=== PATIENT | female | born 1985 | race American Indian/Alaskan Native ===

== ENCOUNTER 2019-05-28 10:20 | Outpatient (CLI) | payer MEDICAID ==
[2019-05-28 11:57] LABS: Free T4 (Free Thyroxine) 1.22 ng/dL (0.76-1.46)
[2019-05-28 12:09] VITALS: BP 119/71
== END 2019-05-28 12:45 | disposition home or self-care (01) ==
LOC: TRG 10:20
PROVIDERS: ATTEND Obstetrics & Gynecology
DX: O47.03 False labor before 37 completed weeks of gestation, third trimester (principal); Z3A.32 32 weeks gestation of pregnancy
CPT/HCPCS: 36415; 84439; 84443; 84481

== ENCOUNTER 2019-07-12 00:53 | Outpatient (CLI) | payer MEDICAID ==
[2019-07-14 12:20] VITALS: BP 141/65
== END 2019-07-12 03:50 | disposition home or self-care (01) ==
LOC: TRG 00:53 → APU 00:55 → TRG 03:50
PROVIDERS: ATTEND Obstetrics & Gynecology
DX: O47.1 False labor at or after 37 completed weeks of gestation (principal); Z3A.39 39 weeks gestation of pregnancy
CPT/HCPCS: 59025

== ENCOUNTER 2019-07-13 10:51 | Inpatient (IN) | payer MEDICAID ==
[2019-07-13] MEDS ORDERED: LACTATED RINGERS 1,000 ML ONE ×2 (12:25→12:54)
[2019-07-13] MEDS ORDERED: MINERAL OIL 30 ML ORAL LIQD PO PRN (12:52)
[2019-07-13] MEDS ORDERED: NalbUPHINE 10 MG/1 ML INJ IV PRN (12:52)
[2019-07-13] MEDS ORDERED: BUTORPHANOL 2 MG/1 ML INJ IV PRN ×2 (12:52)
[2019-07-13] MEDS ORDERED: ONDANSETRON 4 MG/2 ML INJ IV PRN (12:52)
[2019-07-13] MEDS ORDERED: NALOXONE 0.4 MG/1 ML INJ IV PRN (12:52)
[2019-07-13] MEDS ORDERED: TERBUTALINE 1 MG/1 ML INJ SUB-Q PRN (12:52)
[2019-07-13] MEDS ORDERED: TERBUTALINE 1 MG/1 ML INJ IVP PRN (12:52)
[2019-07-13] MEDS ORDERED: PROMETHAZINE 25 MG TAB PO PRN (12:52)
[2019-07-13] MEDS ORDERED: ePHEDrine SULFATE 50 MG/1 ML INJ IV PRN ×2 (12:52→17:13)
[2019-07-13] MEDS ORDERED: fentaNYL 100 MCG/2 ML INJ IV PRN (12:52)
[2019-07-13] MEDS ORDERED: LIDOCAINE (2%) 20 MG/1 ML VIAL 20 ML MDV INFILTRATI ONE (12:52)
--- NOTE | 2019-07-13 12:52 | History and Physical Report ---
History of Present Illness Date of examination: 07/13/19 Date of admission: 07/13/19 Chief complaint: labor History of present illness: This is a 34 yo at 39+3 weeks here for labor at 6cm Past History - Obstetrical History : 1 Medications and Allergies Allergies Allergy/AdvReac Type Severity Reaction Status Date / Time No Known Allergies Allergy Verified 03/11/15 18:08 Home Medications Medication Instructions Recorded Confirmed Last Taken Type methIMAzole [Tapazole] 5 mg PO Q8H #90 tab 09/10/15 Unknown Rx propranoloL [Inderal] 20 mg PO BID #60 tablet 09/10/15 Unknown Rx Diphenhydramine HCl [Benadryl 25 mg PO TID PRN #20 tablet 09/24/15 Unknown Rx Allergy TAB] predniSONE [Deltasone] 20 mg PO BID #10 tab 09/24/15 Unknown Rx - Vital Signs Vital signs: Vital Signs Pulse BP 68 149/84 07/13/19 12:31 07/13/19 12:31 Temp Pulse Resp BP Pulse Ox 98.2 F 68 16 149/84 07/13/19 12:33 07/13/19 12:33 07/13/19 12:33 07/13/19 12:33 Results All other labs normal. Assessment and Plan A/P IUP 39+3 weeks active labor offer epidural augment with pitocin wxpect vaginal delivery
[2019-07-13] MEDS ORDERED: AMPICILLIN/NS 2 GM/100 ML 2 GM/100 ML BAG IV ONE ×2 (12:54→13:00)
[2019-07-13] MEDS ORDERED: OXYTOCIN DRIP 30 UNITS/500 ML BAG IV SCH ×2 (13:00)
[2019-07-13] MEDS: LACTATED RINGERS 1,000 ML IV SCH ×3 (13:00→16:55)
[2019-07-13 13:03] LABS: Hematocrit 36.9 % (30.3-42.9); Hemoglobin 12.1 gm/dl (10.1-14.3); Mean Corpuscular HGB Conc 33 % (30-34); Mean Corpuscular Volume 81 fl (79-97); Platelet Count 281 K/mm3 (140-440); Red Blood Count 4.53 M/mm3 (3.65-5.03); Red Cell Distribution Width 16.1 % (13.2-15.2)
[2019-07-13] MEDS ORDERED: DEXMEDETOMIDINE 200 MCG/2 ML VIAL IV ONE (16:30)
[2019-07-13] MEDS: AMPICILLIN/NS 1 GM/50 ML 1 GM/50 ML BAG IV SCH ×2 (16:55→20:53)
[2019-07-13] MEDS ORDERED: NALOXONE 2 MG/2 ML INJ IV PRN (17:13)
--- NOTE | 2019-07-13 17:16 | Anesthesia Consultation ---
Anesthesia Consult and Med Hx Date of service: 07/13/19 - Airway Anesthetic Teeth Evaluation: Good ROM Head & Neck: Adequate Mental/Hyoid Distance: Adequate Mallampati Class: Class II Intubation Access Assessment: Good - Pulmonary Exam CTA: Yes - Cardiac Exam Cardiac Exam: RRR - Pre-Operative Health Status ASA Pre-Surgery Classification: ASA2, Emergency Proposed Anesthetic Plan: Epidural, Spinal - Pulmonary Hx Asthma: No COPD: No Hx Pneumonia: No - Cardiovascular System Hx Hypertension: No - Central Nervous System Hx Seizures: No Hx Psychiatric Problems: No - Endocrine Hx Renal Disease: No Hx End Stage Renal Disease: No Hx Hypothyroidism: No Hx Hyperthyroidism: Yes (TAKING MEDS) - Hematic Hx Anemia: Yes Hx Sickle Cell Disease: No - Other Systems Hx Alcohol Use: No Hx Cancer: No
--- NOTE | 2019-07-13 17:21 | Progress Note ---
Labor Epidural - Labor Epidural Start Time: 16:33 Stop Time: 17:00 Performed by:: DEMARCUS RAMIREZ
[2019-07-13] MEDS ORDERED: fentaNYL-BUPIV 2 MCG/ML-0.125% 200 MCG/100 ML BAG EPIDURAL SCH (18:00)
[2019-07-13] MEDS ORDERED: METOCLOPRAMIDE 10 MG/2 ML INJ ONE (21:43)
[2019-07-13] MEDS ORDERED: ceFAZolin/Water 2 GM/20 ML 2 GM/20 ML SYRINGE IV ONE (21:43)
[2019-07-13] MEDS ORDERED: BICITRA ORAL LIQD 30ML ONE (21:43)
[2019-07-13] MEDS ORDERED: FAMOTIDINE 20 MG/2 ML INJ IV ONE ×2 (21:43→21:46)
[2019-07-13] MEDS ORDERED: BICITRA ORAL LIQD 30ML PO ONE (21:46)
[2019-07-13] MEDS ORDERED: METOCLOPRAMIDE 10 MG/2 ML INJ IV ONE (21:46)
[2019-07-13] MEDS ORDERED: LACTATED RINGERS 1,000 ML IV SCH (22:00)
[2019-07-13] MEDS ORDERED: ceFAZolin/Water 2 GM/20 ML 2 GM/20 ML SYRINGE IV NR (22:00)
[2019-07-13] MEDS ORDERED: OXYTOCIN 20 UNIT/1000ML DRIP 20 UNITS/1,000 ML BAG IV SCH (22:00)
[2019-07-13] MEDS: methIMAzole 5 MG TAB PO SCH (23:04)
[2019-07-14] MEDS: OXYTOCIN 20 UNIT/1000ML DRIP 20 UNITS/1,000 ML BAG IV SCH ×2 (00:07→00:58)
[2019-07-14] MEDS ORDERED: MAGNESIUM HYDROXIDE (MOM) ORAL LIQD UDC PO PRN (00:18)
[2019-07-14] MEDS ORDERED: oxyCODONE /ACETAMINOPHEN 5-325MG TAB PO PRN (00:18)
[2019-07-14] MEDS ORDERED: PROMETHAZINE 25 MG TAB PO PRN (00:18)
[2019-07-14] MEDS ORDERED: KETOROLAC 30 MG/1 ML INJ IV PRN (00:18)
[2019-07-14] MEDS ORDERED: WITCH HAZEL/ GLYCERIN PAD TP PRN (00:18)
[2019-07-14] MEDS ORDERED: ACETAMINOPHEN 325 MG TAB PO PRN (00:18)
[2019-07-14] MEDS ORDERED: diphenhydrAMINE 25 MG CAP PO PRN (00:18)
[2019-07-14] MEDS ORDERED: LANOLIN/ZINC/DIMETHICONE (LANSINOH) 7 GM TP PRN (00:18)
[2019-07-14] MEDS ORDERED: PROMETHAZINE 25 MG RECT SUPP PR PRN (00:18)
[2019-07-14] MEDS ORDERED: ONDANSETRON 4 MG/2 ML INJ IV PRN (00:18)
--- NOTE | 2019-07-14 00:18 | Procedure Note ---
OB Delivery Note - Delivery Date of Delivery: 07/14/19 Surgeon: MATT ROMAN Estimated blood loss: 300cc - Vaginal Delivery presentation: vertex Delivery position: OA Intrapartum events: meconium Delivery induction: none Delivery augmentation: rupture of membranes, pitocin Delivery monitor: external FHT, external uterine Route of delivery: Delivery placenta: spontaneous Delivery cord: 3 umbilical vessels Episiotomy: none Delivery laceration: none Anesthesia: epidural Delivery comments: Pt progressed to complete/complete/+1 and pushed to deliver a viable female over intact perineum via spontaneous vaginal delivery under epidural anesthesia at 0004. Head delivered CELESTINO followed by shoulders and body. w as bulb suctioned at delivery. [facility] team at bedside, Cord was clamped and cut and handed to NICU staff in attendance. Placenta delivered spontaneously at 0007 . Vagina and perineum explored. No lacerations noted. EBL 300 cc. - A at 1 minute: 8 at 5 minutes: 9 Infant Gender: Female (5 pounds 12 ounces)
[2019-07-14] MEDS: methIMAzole 5 MG TAB PO SCH ×2 (06:54→17:38)
--- NOTE | 2019-07-14 07:11 | Progress Note ---
Assessment and Plan A/P PPD1 routine care check PP CBC Subjective - Subjective Date of service: 07/14/19 Interval history: This is a 34 yo at 39+3 weeks here for labor at 6cm Patient reports: appetite normal, voiding normally, pain well controlled, flatus, ambulating normally : doing well Objective - Vital Signs Latest vital signs: Vital Signs Temp Pulse Resp BP BP Pulse Ox 07/14/19 04:00 98.7 F 77 18 102/78 07/14/19 02:27 98.0 F 65 20 125/60 99 07/14/19 01:23 71 164/78 07/14/19 01:21 78 100 07/14/19 01:20 98 F 07/14/19 01:16 80 99 07/14/19 01:11 73 100 07/14/19 01:08 77 160/89 07/14/19 01:06 76 100 07/14/19 01:01 61 100 07/14/19 00:56 62 100 07/14/19 00:53 62 166/98 07/14/19 00:51 70 99 07/14/19 00:46 76 100 07/14/19 00:41 71 100 07/14/19 00:39 92 H 165/97 07/14/19 00:36 82 100 07/14/19 00:31 82 100 07/14/19 00:26 94 H 100 07/14/19 00:24 83 155/74 07/14/19 00:20 92 H 100 07/14/19 00:15 90 100 07/14/19 00:10 78 100 07/14/19 00:05 91 H 99 07/14/19 00:00 141 H 100 07/13/19 23:55 107 H 97 07/13/19 23:50 84 100 07/13/19 23:45 73 100 07/13/19 23:40 92 H 100 07/13/19 23:35 74 100 07/13/19 23:30 71 100 07/13/19 23:25 80 100 07/13/19 23:22 83 139/77 07/13/19 23:20 83 100 07/13/19 23:15 104 H 99 07/13/19 23:10 72 100 07/13/19 23:07 106 H 94 07/13/19 23:05 91 H 97 07/13/19 23:00 61 100 07/13/19 22:55 63 100 07/13/19 22:50 63 100 07/13/19 22:45 70 100 07/13/19 22:40 65 100 07/13/19 22:35 61 100 07/13/19 22:30 61 100 07/13/19 22:25 62 100 07/13/19 22:23 58 L 105/46 07/13/19 22:20 64 100 07/13/19 22:15 64 100 07/13/19 22:10 65 100 07/13/19 22:05 67 100 07/13/19 22:00 67 100 07/13/19 21:55 64 100 07/13/19 21:50 65 100 07/13/19 21:45 89 100 07/13/19 21:38 64 100 07/13/19 21:33 77 100 07/13/19 21:28 74 100 07/13/19 21:23 63 100 07/13/19 21:21 58 L 137/65 07/13/19 21:18 59 L 100 07/13/19 21:13 63 100 07/13/19 21:08 63 100 07/13/19 21:03 77 100 07/13/19 20:58 54 L 100 07/13/19 20:53 57 L 100 07/13/19 20:48 59 L 100 07/13/19 20:43 54 L 100 07/13/19 20:38 57 L 100 07/13/19 20:33 58 L 100 07/13/19 20:28 53 L 100 07/13/19 20:23 60 100 07/13/19 20:18 76 100 07/13/19 20:17 81 90 07/13/19 20:13 60 98 07/13/19 20:08 55 L 100 07/13/19 20:03 53 L 100 07/13/19 19:58 52 L 100 07/13/19 19:53 51 L 100 07/13/19 19:50 51 L 145/74 07/13/19 19:48 56 L 100 07/13/19 19:43 51 L 100 07/13/19 19:38 51 L 100 07/13/19 19:33 51 L 100 07/13/19 19:28 50 L 100 07/13/19 19:23 52 L 100 07/13/19 19:20 50 L 153/80 07/13/19 19:18 51 L 100 07/13/19 19:15 97.8 F 18 07/13/19 19:14 61 94 07/13/19 19:13 55 L 100 07/13/19 19:08 54 L 100 07/13/19 19:03 57 L 100 07/13/19 18:58 50 L 100 07/13/19 18:53 53 L 100 07/13/19 18:50 49 L 142/73 07/13/19 18:49 53 L 138/72 07/13/19 18:48 39 L 100 07/13/19 18:43 53 L 100 07/13/19 18:38 52 L 100 07/13/19 18:33 52 L 100 07/13/19 18:28 52 L 100 07/13/19 18:23 51 L 100 07/13/19 18:19 51 L 139/73 07/13/19 18:18 55 L 100 07/13/19 18:13 56 L 100 07/13/19 18:08 57 L 100 07/13/19 18:03 59 L 100 07/13/19 18:00 98.2 F 07/13/19 17:58 54 L 100 07/13/19 17:53 52 L 100 07/13/19 17:49 51 L 133/63 07/13/19 17:48 58 L 100 07/13/19 17:43 54 L 100 07/13/19 17:38 54 L 100 07/13/19 17:33 56 L 100 07/13/19 17:28 62 100 07/13/19 17:25 65 93 07/13/19 17:23 58 L 100 07/13/19 17:18 69 129/64 100 07/13/19 17:16 65 123/60 90 07/13/19 17:14 62 144/67 07/13/19 17:13 61 100 07/13/19 17:12 67 143/70 07/13/19 17:10 68 148/64 07/13/19 17:08 68 148/68 100 07/13/19 17:06 67 152/72 07/13/19 17:05 93 H 141/68 07/13/19 17:03 76 100 07/13/19 17:02 70 148/70 07/13/19 16:58 69 99 07/13/19 16:53 120 H 100 07/13/19 16:48 76 100 07/13/19 16:47 71 141/64 07/13/19 16:45 108 H 183/85 07/13/19 16:43 85 165/78 100 07/13/19 16:41 92 H 155/75 07/13/19 16:38 88 100 07/13/19 16:36 85 148/114 07/13/19 16:33 86 100 07/13/19 16:29 103 H 82 L 07/13/19 16:28 105 H 100 07/13/19 16:23 76 100 07/13/19 16:21 112 H 88 07/13/19 16:18 69 100 07/13/19 16:16 96 H 164/94 07/13/19 16:13 81 99 07/13/19 16:10 71 82 L 07/13/19 16:08 66 99 07/13/19 16:04 88 169/102 07/13/19 16:03 114 H 100 07/13/19 15:58 82 100 07/13/19 15:53 65 100 07/13/19 15:48 88 100 07/13/19 15:43 65 100 07/13/19 15:38 61 99 07/13/19 15:35 67 177/89 07/13/19 15:33 72 100 07/13/19 15:30 98.1 F 07/13/19 15:28 66 100 07/13/19 15:23 65 100 07/13/19 15:18 64 100 07/13/19 15:13 95 H 100 07/13/19 15:08 63 99 07/13/19 15:04 59 L 140/67 07/13/19 15:03 64 100 07/13/19 12:33 98.2 F 68 16 149/84 07/13/19 12:31 68 149/84 Intake and Output 07/13/19 07/13/19 07/14/19 15:59 23:59 07:59 Intake Total 231.25 6810.775 5924 Output Total 1002 1400 Balance 231.25 7.333 380 Intake: IV 231.25 6916.886 8024 AMPICILLIN/NS 1 GM/50 ML 50 1 gm In 50 ml @ 100 mls/ hr IV Q4H [place] Rx#: [id number] Lactated Ringers 1,000 ml 231.25 945.833 @ 125 mls/hr IV DIRECT [place] Rx#:[id number] PITOCin/NS 20 UNIT/1000ML 1000 DRIP 20 units In 1,000 ml @ 125 mls/hr IV DIRECT [place] Rx#:[id number] PITOCin/NS 30 UNIT/500ML 13.500 30 units In 500 ml @ 1 MILLIUNITS/MIN 1 mls/hr IV TITR [place] Rx#:[id number] Oral 480 Intake, Free Water 300 Output: Urine 1002 1400 Indwelling Catheter 1002 800 Void 600 Other: Total, Intake Amount 480 Total, Output Amount 88 800 # Voids Void 1 # Bowel Movements 0 Weight 124.738 kg Estimated Blood Loss 300 - Exam Breasts: Present: normal Cardiovascular: Present: Regular rate, Normal S1 Lungs: Present: Clear to auscultation, Normal air movement Abdomen: Present: normal appearance, soft, normal bowel sounds. Absent: distention, tenderness, guarding Uterus: Present: normal, firm, fundal height below umbilicus. Absent: bogginess, tenderness Extremities: Present: normal Deep Tendon Reflex Grade: Normal +2 Incision: Present: normal - Labs Labs: Abnormal lab results 07/13/19 Range/Units Unknown MCH 27 L (28-32) pg RDW 16.1 H (13.2-15.2) %
[2019-07-14] MEDS: IBUPROFEN 600 MG TAB PO SCH ×2 (10:50→17:40)
[2019-07-14] MEDS: DOCUSATE SODIUM 100 MG CAP PO SCH ×2 (10:51→22:30)
[2019-07-14] MEDS: PRENATAL VIT27-FE FUMARATE-FOLIC ACID VIT TAB PO SCH (10:51)
[2019-07-14 12:17] LABS: Hematocrit 30.3 % (30.3-42.9)
[2019-07-14] MEDS: SENNOSIDES/DOCUSATE SODIUM 8.6/50 MG TAB PO SCH (22:30)
[2019-07-15] MEDS: IBUPROFEN 600 MG TAB PO SCH ×3 (00:16→21:22)
[2019-07-15] MEDS ORDERED: MEASLES, MUMPS & RUBELLA 12,500 UNIT/0.5 ML VACCINE SUB-Q ONE (00:18)
[2019-07-15] MEDS: methIMAzole 5 MG TAB PO SCH ×3 (02:03→21:09)
[2019-07-15] MEDS ORDERED: DIPHtheria,PERTUSSIS(ACELL),TETANUS VACCINE/PF 0.5 ML VIAL IM ONE (06:00)
[2019-07-15] MEDS ORDERED: MAGNESIUM SULFATE 4 GM/100 ML BAG IV ONE ×2 (07:38→12:00)
[2019-07-15] MEDS ORDERED: MAGNESIUM SULFATE 40GM/1000ML 40 GM/1,000 ML BAG IV SCH (08:00)
[2019-07-15] MEDS ORDERED: LACTATED RINGERS 1,000 ML IV SCH (08:00)
--- NOTE | 2019-07-15 08:22 | Progress Note ---
Assessment and Plan A: PPD2 s/p preeclampsia with severe features Labs stable P: Transfer to L&D for mag sulfate x24 hours Subjective - Subjective Date of service: 07/15/19 Principal diagnosis: s/p Interval history: PPD2 s/p . Pt was noted to have several severe range blood pressures yesterday. She typically takes Labetalol for tachycardia (has only had one dose during this hospital stay), and is continuing to take Methimazole for hyperthyroidism. She denies OLIVO, scotomata, RUQ pain. Patient reports: appetite normal, voiding normally, pain well controlled, ambulating normally : doing well Objective - Vital Signs Latest vital signs: Vital Signs Temp Pulse Resp BP Pulse Ox 07/15/19 06:22 18 07/15/19 01:21 98.2 F 66 20 132/65 100 07/15/19 00:16 18 07/14/19 17:40 20 07/14/19 16:15 98.1 F 76 20 132/64 99 07/14/19 12:08 98.0 F 68 20 122/63 100 07/14/19 10:50 20 Intake and Output 07/14/19 07/15/19 07/15/19 23:59 07:59 15:59 Intake Total 360 Balance 360 Intake: Oral 360 Other: Total, Intake Amount 240 # Voids Void 1 - Exam Lungs: Present: Normal air movement Abdomen: Present: soft. Absent: distention Uterus: Present: firm, fundal height below umbilicus. Absent: bogginess Extremities: Present: normal - Labs Labs: Abnormal lab results 07/14/19 Range/Units 11:52 Hgb 10.0 L (10.1-14.3) gm/dl
[2019-07-15] MEDS: SENNOSIDES/DOCUSATE SODIUM 8.6/50 MG TAB PO SCH (09:38)
[2019-07-15] MEDS: PRENATAL VIT27-FE FUMARATE-FOLIC ACID VIT TAB PO SCH (09:39)
[2019-07-15] MEDS: DOCUSATE SODIUM 100 MG CAP PO SCH (09:39)
[2019-07-15] MEDS: HYDROcodone/ACETAMINOPHEN 5-325 MG TAB PO PRN (09:44)
[2019-07-15 12:54] LABS: Alanine Aminotransferase 18 units/L (7-56); Albumin 3.1 g/dL (3.9-5); BUN/Creatinine Ratio 15; Blood Urea Nitrogen 9 mg/dL (7-17); Calcium 9.4 mg/dL (8.4-10.2); Hemolysis Index 4
[2019-07-15 12:56] LABS: Bilirubin,Direct < 0.2 mg/dL (0-0.2)
[2019-07-15 13:49] LABS: Hematocrit 29.6 % (30.3-42.9); Hemoglobin 9.7 gm/dl (10.1-14.3); Mean Corpuscular HGB Conc 33 % (30-34); Mean Corpuscular Volume 81 fl (79-97); Platelet Count 241 K/mm3 (140-440); Red Blood Count 3.64 M/mm3 (3.65-5.03); Red Cell Distribution Width 16.5 % (13.2-15.2)
[2019-07-15] MEDS ORDERED: FAMOTIDINE 20 MG/2 ML INJ IV ONE (14:25)
[2019-07-15] MEDS ORDERED: METOCLOPRAMIDE 10 MG/2 ML INJ ONE (14:25)
[2019-07-15] MEDS ORDERED: BICITRA ORAL LIQD 30ML ONE (14:25)
[2019-07-15] MEDS: LACTATED RINGERS 1,000 ML IV SCH (17:08)
[2019-07-15 18:16] LABS: Creatinine,Urine 30.5 mg/dL (0.1-20.0); Protein/Creatinine Ratio,Urine 0.69
[2019-07-16] MEDS: HYDROcodone/ACETAMINOPHEN 5-325 MG TAB PO PRN ×2 (05:28→05:36)
[2019-07-16] MEDS: IBUPROFEN 600 MG TAB PO SCH ×2 (05:36→15:56)
--- NOTE | 2019-07-16 08:48 | Progress Note ---
Assessment and Plan A: PPD3 s/p preeclampsia with severe features Acute anemia due to blood loss P: Ferrous sulfate supplementation Complete 24 hours of MGSO4 infusion, then discharge to home Subjective - Subjective Date of service: 07/16/19 Principal diagnosis: s/p , MGSO4 Interval history: PPD3 s/p . She is currently receiving MGSO4 infusion for preeclampsia with severe features. BP has been stable (normal/mild range) Patient reports: appetite normal, pain well controlled [place]: doing well, bottle feeding Objective - Vital Signs Latest vital signs: Vital Signs Temp Pulse Resp BP BP Pulse Ox 07/16/19 08:14 98.1 F 83 99 07/16/19 08:12 72 135/62 07/16/19 08:09 77 134/65 97 07/16/19 06:27 77 145/70 07/16/19 05:40 27 L 52 L 07/16/19 05:38 98.1 F 80 18 143/68 99 07/16/19 05:27 80 143/68 07/16/19 04:27 78 125/65 07/16/19 03:27 90 131/60 07/16/19 02:27 100 H 122/75 07/16/19 01:43 92 07/16/19 01:27 77 125/64 07/16/19 00:27 90 143/58 07/16/19 00:10 78 99 07/16/19 00:05 98.1 F 74 20 122/63 98 07/15/19 23:27 74 122/63 07/15/19 22:49 89 07/15/19 22:27 77 120/64 07/15/19 21:36 99 H 98 07/15/19 21:28 98.9 F 96 H 24 128/63 128/63 98 07/15/19 20:58 97 H 126/64 07/15/19 19:28 81 149/89 07/15/19 18:33 82 150/72 07/15/19 17:27 63 106/59 07/15/19 16:57 67 134/60 07/15/19 16:27 58 L 131/63 07/15/19 15:58 55 L 128/61 07/15/19 15:27 55 L 147/65 07/15/19 14:26 59 L 134/61 07/15/19 14:22 98.7 F 07/15/19 14:20 64 124/58 07/15/19 14:02 68 127/60 07/15/19 13:47 63 140/63 07/15/19 13:32 62 129/57 07/15/19 13:14 62 117/55 07/15/19 13:09 58 L 116/58 07/15/19 13:04 56 L 117/55 07/15/19 12:59 61 121/59 07/15/19 12:54 70 122/66 07/15/19 12:49 60 123/62 07/15/19 12:44 60 121/61 07/15/19 12:39 58 L 121/60 07/15/19 12:30 98.2 F 58 L 156/70 07/15/19 12:29 58 L 156/70 07/15/19 11:41 55 L 139/62 07/15/19 11:37 60 169/72 07/15/19 11:20 54 L 160/70 07/15/19 10:57 60 160/66 07/15/19 10:55 58 L 164/76 - Exam Lungs: Present: Normal air movement Abdomen: Present: soft. Absent: distention Uterus: Present: firm, fundal height below umbilicus. Absent: bogginess - Labs Labs: Abnormal lab results 07/15/19 07/15/19 07/15/19 Range/Units 10:28 10:28 13:36 WBC (4.5-11.0) K/mm3 RBC (3.65-5.03) M/mm3 Hgb (10.1-14.3) gm/dl Hct (30.3-42.9) % MCH (28-32) pg RDW (13.2-15.2) % Creatinine 0.6 L (0.7-1.2) mg/dL Magnesium 1.40 L 2.90 H (1.7-2.3) mg/dL Albumin 3.1 L (3.9-5) g/dL Urine Creatinine (0.1-20.0) mg/dL Urine Total Protein (5-11.8) mg/dL 07/15/19 07/15/19 07/15/19 Range/Units 13:36 18:45 Unknown WBC 15.1 H (4.5-11.0) K/mm3 RBC 3.64 L (3.65-5.03) M/mm3 Hgb 9.7 L (10.1-14.3) gm/dl Hct 29.6 L (30.3-42.9) % MCH 27 L (28-32) pg RDW 16.5 H (13.2-15.2) % Creatinine (0.7-1.2) mg/dL Magnesium 3.70 H (1.7-2.3) mg/dL Albumin (3.9-5) g/dL Urine Creatinine 30.5 H (0.1-20.0) mg/dL Urine Total Protein 21 H (5-11.8) mg/dL
--- NOTE | 2019-07-16 08:52 | Discharge Summary ---
Providers - Providers Date of Admission: 07/13/19 10:52 Date of discharge: 07/16/19 Attending physician: MATT ROMAN MD Primary care physician: MATT ROMAN MD Hospitalization Reason for admission: active labor Delivery: Laceration: none complications: other (preeclampsia) Discharge diagnosis: IUP at term delivered Hospital course: Pt arrived in active labor and progressed to . She was found to have preeclampsia, received 24hr infusion of MGSO4, and was discharged home in stable condition on PPD3. Condition at discharge: Good Disposition: DC-01 TO HOME OR SELFCARE Plan - Discharge Medications Prescriptions: Ibuprofen [Motrin] 600 mg PO Q8H PRN #30 tablet PRN Reason: Pain - Provider Discharge Summary Activity: routine, no sex for 6 weeks, no heavy lifting 4 weeks, no strenuous exercise Diet: routine Instructions: routine Additional instructions: [] Smoking cessation referral if applicable(refer to patient education folder for contact #) [] Refer to [facility] Booklet Call your doctor immediately for: * Fever > 100.5 * Heavy vaginal bleeding ( >1 pad per hour) * Severe persistent headache * Shortness of breath * Reddened, hot, painful area to leg or breast * Drainage or odor from incision. * Keep incision clean and dry at all times and follow doctor's instructions regarding bathing/showering - Follow up plan Follow up: MATT ROMAN MD [Primary Care Provider] - 7 Days (Please call [place] [facility]'s accounts clerk to schedule appointment.)
[2019-07-16] MEDS: methIMAzole 5 MG TAB PO SCH (09:55)
[2019-07-16 15:56] VITALS: BP 145/66
== END 2019-07-16 16:30 | disposition home or self-care (01) | DRG 774 ==
LOC: LD 10:51 → TRG 10:51 → LD 10:52 → TRG 10:52 → APU 10:54 → OB 07-14 01:55 → LD 07-15 10:47
PROVIDERS: ADMIT Obstetrics & Gynecology; ATTEND Obstetrics & Gynecology
PROC: 10E0XZZ Delivery of Products of Conception, External Approach (ICD-10-PCS; principal; 2019-07-14)
PROC: 3E0R3BZ Introduction of Anesthetic Agent into Spinal Canal, Percutaneous Approach (ICD-10-PCS; 2019-07-14)
PROC: 3E0R33Z Introduction of Anti-inflammatory into Spinal Canal, Percutaneous Approach (ICD-10-PCS; 2019-07-14)
PROC: 3E0234Z Introduction of Serum, Toxoid and Vaccine into Muscle, Percutaneous Approach (ICD-10-PCS; 2019-07-15)
PROC: 3E0134Z Introduction of Serum, Toxoid and Vaccine into Subcutaneous Tissue, Percutaneous Approach (ICD-10-PCS; 2019-07-15)
DX: O77.0 Labor and delivery complicated by meconium in amniotic fluid (principal); O14.15 Severe pre-eclampsia, complicating the puerperium; D64.9 Anemia, unspecified; D62 Acute posthemorrhagic anemia; O90.81 Anemia of the puerperium; O99.284 Endocrine, nutritional and metabolic diseases complicating childbirth; Z3A.39 39 weeks gestation of pregnancy; Z37.0 Single live birth; Z23 Encounter for immunization; E03.9 Hypothyroidism, unspecified
CPT/HCPCS: 36415; 59025; 80053; 82248; 82570; 83735; 84156; 84550; 85014; 85018; 85027; 86850; 86900; 86901; 88307; 90715; G0378; J0290; J0690; J2405; J2590; J2765; J3010; J3475; J3490; J7120

== ENCOUNTER 2021-03-23 11:03 | Outpatient (CLI) | payer MEDICAID ==
[2021-03-23] MEDS ORDERED: LACTATED RINGERS 1,000 ML IV ONE (11:36)
[2021-03-23 11:37] VITALS: BP 124/66
[2021-03-23 12:23] LABS: Bilirubin,Urine NEG (Negative); Blood,Urine NEG (Negative); Color,Urine Yellow (Yellow); Mucus,Urine FEW /HPF; RBC,Urine < 1.0 /HPF (0.0-6.0); Urobilinogen,Urine < 2.0 mg/dL (<2.0)
[2021-03-23 12:27] LABS: HCG Qualitative,Urine Positive (Negative)
== END 2021-03-23 12:45 | disposition home or self-care (01) ==
LOC: TRG 11:03 → APU 11:05 → TRG 12:45
PROVIDERS: ATTEND Obstetrics & Gynecology
DX: O46.8X9 Other antepartum hemorrhage, unspecified trimester (principal)
CPT/HCPCS: 59025; 81001; 81025

== ENCOUNTER 2021-05-30 14:57 | Inpatient (IN) | payer MEDICAID ==
[2021-05-30] MEDS ORDERED: LOPERAMIDE 2 MG CAP PO PRN (16:30)
[2021-05-30] MEDS ORDERED: OXYTOCIN 10 UNIT/1 ML INJ IM PRN (16:30)
[2021-05-30] MEDS ORDERED: CARBOPROST TROMETHAMINE 250 MCG/1 ML INJ IM PRN (16:30)
[2021-05-30] MEDS ORDERED: TERBUTALINE 1 MG/1 ML INJ SUB-Q PRN (16:30)
[2021-05-30] MEDS ORDERED: LIDOCAINE (2%) 20 MG/1 ML VIAL 20 ML MDV INFILTRATI ONE (16:30)
[2021-05-30] MEDS ORDERED: ePHEDrine SULFATE 50 MG/1 ML INJ IV PRN (16:30)
[2021-05-30] MEDS ORDERED: METHYLERGONOVINE MALEATE 0.2 MG/ML VIAL IM PRN (16:30)
[2021-05-30] MEDS ORDERED: miSOPROStol 200 MCG TAB PR PRN (16:30)
[2021-05-30 16:44] LABS: Hematocrit 35.3 % (30.3-42.9); Hemoglobin 11.5 gm/dl (10.1-14.3); Mean Corpuscular HGB Conc 33 % (30-34); Mean Corpuscular Volume 83 fl (79-97); Platelet Count 264 K/mm3 (140-440); Red Blood Count 4.28 M/mm3 (3.65-5.03); Red Cell Distribution Width 15.4 % (13.2-15.2)
[2021-05-30] MEDS ORDERED: OXYTOCIN DRIP 30 UNITS/500 ML BAG IV SCH ×2 (17:00)
[2021-05-30] MEDS ORDERED: BUTORPHANOL 2 MG/1 ML INJ IV PRN (17:00)
[2021-05-30] MEDS ORDERED: ACETAMINOPHEN 325 MG TAB PO PRN (17:00)
[2021-05-30] MEDS ORDERED: AMPICILLIN/NS 2 GM/100 ML 2 GM/100 ML BAG IV ONE (17:13)
[2021-05-30] MEDS ORDERED: DINOPROSTONE 10 MG VAG SUPP VG ONE (17:13)
[2021-05-30] MEDS: LACTATED RINGERS 1,000 ML IV SCH (18:07)
[2021-05-30] MEDS ORDERED: MINERAL OIL 30 ML ORAL LIQD PO PRN (22:00)
[2021-05-31] MEDS: LACTATED RINGERS 1,000 ML IV SCH ×3 (02:18→19:44)
--- NOTE | 2021-05-31 08:15 | History and Physical Report ---
History of Present Illness Date of examination: 05/31/21 Date of admission: 05/30/21 14:58 Chief complaint: IOL secondary to IUGR History of present illness: 36 yo, @ 37.1 wks, initiated care with [place] women's statement services representative at 11 wks. Her has been complicated by positive GBS status in urine, HSV2 positive, hyperthyroidism, maternal tachycardia, severe eczema, severe IUGR. Presents to [facility] last night for scheduled IOL secondary to IUGR. Reports +FM. Denies any VB or LOF. Labs: O+, antibody negative; rubella immune; VDRL negative; HBsAg negative; HIV negative; plts 304; GC/Chlamydia/Trich negative; NIPT low-risk; 1 hr gtt 103; GBS positive. Past History Past Medical History: thyroid disease, other (Hidradenitis suppurativa; tachycardia) Past Surgical History: tonsillectomy [employer] History: herpes Family/Genetic History: cancer (Mother - cervical) Social history: single, smoking (marijuana), full code. denies: alcohol abuse, prescription drug abuse, IV drug use - Obstetrical History Expected Date of Delivery: 06/20/21 Actual Gestation: 37 Week(s) 1 Day(s) : 3 Para: 1 Hx # Term Pregnancies: 1 Number of Pregnancies: 0 Spontaneous Abortions: 1 Induced : 0 Number of Living Children: 1 #1 Gender: Female year: Method of Delivery: Vaginal Gestational age at delivery: 39 Complications: none Medications and Allergies Allergies Allergy/AdvReac Type Severity Reaction Status Date / Time No Known Allergies Allergy Verified 05/30/21 16:07 Home Medications Medication Instructions Recorded Confirmed Last Taken Type No.137/Iron/Folic Acd 1 each PO DAILY 05/30/21 05/30/21 05/29/21 History [[facility] Tablet] labetaloL [Labetalol 100mg TAB] 100 mg PO BID 05/30/21 05/30/21 05/29/21 History methIMAzole [Methimazole] 5 mg PO DAILY 05/30/21 05/30/21 05/29/21 History Active Meds: Active Medications Acetaminophen (Acetaminophen 325 Mg Tab) 650 mg PO Q4H PRN PRN Reason: Pain, Mild (1-3) Butorphanol Tartrate (Butorphanol 2 Mg/1 Ml Inj) 1 mg IV Q2H PRN PRN Reason: Pain, Moderate(4-6) LABOR PAIN Carboprost Tromethamine (Carboprost Tromethamine 250 Mcg/1 Ml Inj) 250 mcg IM ONCE PRN PRN Reason: Uterine Bleeding Ephedrine Sulfate (Ephedrine Sulfate 50 Mg/1 Ml Inj) 10 mg IV Q2M PRN PRN Reason: Hypotension Fentanyl (Fentanyl 100 Mcg/2 Ml Inj) 100 mcg IV Q2H PRN PRN Reason: Pain,Severe (7-10) LABOR PAIN Oxytocin/Sodium Chloride (Pitocin/Ns 30 Unit/500ml) 30 units in 500 mls @ 2 mls/hr IV TITR [place]; Protocol Lactated Ringer's (Lactated Ringers) 1,000 mls @ 125 mls/hr IV DIRECT [place] Last Admin: 05/31/21 02:18 Dose: 125 mls/hr Oxytocin/Sodium Chloride (Pitocin/Ns 30 Unit/500ml) 30 units in 500 mls @ 40 mls/hr IV TITR [place]; Protocol Ampicillin Sodium (Ampicillin/Ns 1 Gm/50 Ml) 1 gm in 50 mls @ 100 mls/hr IV Q4H [place]; Protocol Loperamide HCl (Loperamide 2 Mg Cap) 2 mg PO ONCE PRN PRN Reason: give with Hemabate Methylergonovine Maleate (Methylergonovine Maleate 0.2 Mg/Ml Vial) 0.2 mg IM ONCE PRN PRN Reason: Uterine Bleeding Mineral Oil (Mineral Oil 30 Ml Oral Liqd) 30 ml PO QHS PRN PRN Reason: Constipation Misoprostol (Misoprostol 200 Mcg Tab) 800 mcg CA ONCE PRN PRN Reason: Uterine Bleeding Oxytocin (Oxytocin 10 Unit/1 Ml Inj) 10 unit IM ONCE PRN PRN Reason: Uterine Bleeding Terbutaline Sulfate (Terbutaline 1 Mg/1 Ml Inj) 0.25 mg SUB-Q ONCE PRN PRN Reason: Hyperstimulation/Hypertonicity Review of Systems All systems: negative - Vital Signs Vital signs: Vital Signs Pulse Pulse Ox 80 97 05/30/21 15:32 05/30/21 15:32 Temp Pulse Resp BP Pulse Ox 98.2 F 66 20 113/59 99 05/31/21 06:11 05/31/21 08:11 05/30/21 19:23 05/31/21 07:51 05/31/21 08:11 - Physical Exam Breasts: Positive: normal Cardiovascular: Regular rate Abdomen: Positive: other (gravid) Uterus: Positive: enlarged (S<D) Extremities: Positive: edema Deep Tendon Reflex Grade: Normal +2 - Obstetrical FHR: category 1 Uterine Contraction Monitor Mode: External Cervical Dilatation: 1 (per RN) Cervical Effacement Percentage: 50 station: -3 Uterine Contraction Pattern: Irregular Uterine Tone Measurement Phase: Resting Uterine Contraction Intensity: Mild Results Result Diagrams: 05/30/21 16:09 Abnormal lab results 05/30/21 Range/Units 16:09 MCH 27 L (28-32) pg RDW 15.4 H (13.2-15.2) % All other labs normal. Assessment and Plan - Patient Problems (1) IUGR (intrauterine growth restriction) affecting care of mother Current Visit: Yes Status: Acute Qualifiers: Fetus number: single or unspecified fetus Trimester: third trimester Qualified Code(s): O36.5930 - Maternal care for other known or suspected poor growth, third trimester, not applicable or unspecified Plan to address problem: IOL S/P cervidil Cytotec ordered Pain meds as desired per orders Continue to closely monitor maternal/ well-being (2) GBS bacteriuria Current Visit: Yes Status: Acute Plan to address problem: Initiate GBS prophylaxis when SROM or active labor occurs (3) HSV-2 seropositive Current Visit: Yes Status: Acute (4) Tachycardia Current Visit: Yes Status: Acute (5) Hyperthyroidism affecting Current Visit: Yes Status: Acute Plan to address problem: thyroidectomy planned for (6) Eczema Current Visit: Yes Status: Acute
[2021-05-31] MEDS ORDERED: miSOPROStol 25 MCG TAB VG PRN (10:30)
[2021-05-31] MEDS: fentaNYL 100 MCG/2 ML INJ IV PRN ×2 (17:40→19:46)
[2021-05-31] MEDS ORDERED: AMPICILLIN/NS 2 GM/100 ML 2 GM/100 ML BAG IV ONE (22:15)
[2021-06-01] MEDS: AMPICILLIN/NS 1 GM/50 ML 1 GM/50 ML BAG IV SCH (03:20)
--- NOTE | 2021-06-01 08:58 | Progress Note ---
Assessment and Plan - Patient Problems (1) IUGR (intrauterine growth restriction) affecting care of mother Current Visit: Yes Status: Acute Qualifiers: Fetus number: single or unspecified fetus Trimester: third trimester Qualified Code(s): O36.5930 - Maternal care for other known or suspected poor growth, third trimester, not applicable or unspecified Plan to address problem: Cooks catheter placed @ 0840, tolerated well May eat/shower Resume low-dose Pitocin with max of 4mu/min Pain meds as desired per orders Continue to closely monitor maternal/ well-being (2) GBS bacteriuria Current Visit: Yes Status: Acute Plan to address problem: Initiate GBS prophylaxis when SROM or active labor occurs (3) HSV-2 seropositive Current Visit: Yes Status: Acute (4) Tachycardia Current Visit: Yes Status: Acute (5) Hyperthyroidism affecting Current Visit: Yes Status: Acute Plan to address problem: thyroidectomy planned for (6) Eczema Current Visit: Yes Status: Acute Subjective - Subjective Date of service: 06/01/21 Principal diagnosis: IOL; IUGR Interval history: 36 yo, @ 37.1 wks, initiated care with [facility]'s shank carrier at 11 wks. Her has been complicated by positive GBS status in urine, HSV2 positive, hyperthyroidism, maternal tachycardia, severe eczema, severe IUGR. Presents to [facility] last night for scheduled IOL secondary to IUGR. Reports +FM. Denies any VB or LOF. Labs: O+, antibody negative; rubella immune; VDRL negative; HBsAg negative; HIV negative; plts 304; GC/Chlamydia/Trich negative; NIPT low-risk; 1 hr gtt 103; GBS positive. Patient reports: movement normal, contractions, no new complaints, no loss of fluid, no vaginal bleeding Objective - Vital Signs Vital Signs: Vital Signs - 12hr 05/31/21 05/31/21 05/31/21 20:58 21:03 21:08 Temperature Pulse Rate 57 L 61 61 Respiratory Rate Blood Pressure Blood Pressure [Right] O2 Sat by Pulse 100 100 100 Oximetry O2 Sat by Pulse Oximetry [ Anterior Bilateral Throughout] 05/31/21 05/31/21 05/31/21 21:13 21:14 21:18 Temperature Pulse Rate 62 60 59 L Respiratory Rate Blood Pressure 152/76 Blood Pressure [Right] O2 Sat by Pulse 100 100 Oximetry O2 Sat by Pulse Oximetry [ Anterior Bilateral Throughout] 05/31/21 05/31/21 05/31/21 21:23 21:28 21:33 Temperature Pulse Rate 59 L 59 L 59 L Respiratory Rate Blood Pressure Blood Pressure [Right] O2 Sat by Pulse 100 100 100 Oximetry O2 Sat by Pulse Oximetry [ Anterior Bilateral Throughout] 05/31/21 05/31/21 05/31/21 21:38 21:43 21:45 Temperature Pulse Rate 66 61 64 Respiratory Rate Blood Pressure 117/68 Blood Pressure [Right] O2 Sat by Pulse 100 100 Oximetry O2 Sat by Pulse Oximetry [ Anterior Bilateral Throughout] 05/31/21 05/31/21 05/31/21 21:48 21:53 21:58 Temperature Pulse Rate 60 77 55 L Respiratory Rate Blood Pressure Blood Pressure [Right] O2 Sat by Pulse 100 100 100 Oximetry O2 Sat by Pulse Oximetry [ Anterior Bilateral Throughout] 05/31/21 05/31/21 05/31/21 22:03 22:08 22:13 Temperature Pulse Rate 60 61 59 L Respiratory Rate Blood Pressure Blood Pressure [Right] O2 Sat by Pulse 100 100 100 Oximetry O2 Sat by Pulse Oximetry [ Anterior Bilateral Throughout] 05/31/21 05/31/21 05/31/21 22:15 22:18 22:23 Temperature Pulse Rate 58 L 65 58 L Respiratory Rate Blood Pressure 147/79 Blood Pressure [Right] O2 Sat by Pulse 100 100 Oximetry O2 Sat by Pulse Oximetry [ Anterior Bilateral Throughout] 05/31/21 05/31/21 05/31/21 22:28 22:33 22:38 Temperature Pulse Rate 56 L 58 L 61 Respiratory Rate Blood Pressure Blood Pressure [Right] O2 Sat by Pulse 100 100 100 Oximetry O2 Sat by Pulse Oximetry [ Anterior Bilateral Throughout] 05/31/21 05/31/21 05/31/21 22:43 22:45 22:48 Temperature Pulse Rate 57 L 61 62 Respiratory Rate Blood Pressure 135/75 Blood Pressure [Right] O2 Sat by Pulse 100 100 Oximetry O2 Sat by Pulse Oximetry [ Anterior Bilateral Throughout] 05/31/21 05/31/21 05/31/21 22:54 22:58 23:04 Temperature Pulse Rate 59 L 67 66 Respiratory Rate Blood Pressure Blood Pressure [Right] O2 Sat by Pulse 100 100 100 Oximetry O2 Sat by Pulse Oximetry [ Anterior Bilateral Throughout] 05/31/21 05/31/21 05/31/21 23:09 23:18 23:23 Temperature Pulse Rate 59 L 78 65 Respiratory Rate Blood Pressure Blood Pressure [Right] O2 Sat by Pulse 100 99 100 Oximetry O2 Sat by Pulse Oximetry [ Anterior Bilateral Throughout] 05/31/21 05/31/21 05/31/21 23:28 23:32 23:38 Temperature Pulse Rate 56 L 57 L 63 Respiratory Rate Blood Pressure Blood Pressure [Right] O2 Sat by Pulse 100 100 100 Oximetry O2 Sat by Pulse Oximetry [ Anterior Bilateral Throughout] 05/31/21 05/31/21 05/31/21 23:43 23:44 23:48 Temperature Pulse Rate 57 L 56 L 58 L Respiratory Rate Blood Pressure 143/75 Blood Pressure [Right] O2 Sat by Pulse 100 100 Oximetry O2 Sat by Pulse Oximetry [ Anterior Bilateral Throughout] 05/31/21 05/31/21 06/01/21 23:53 23:58 00:03 Temperature Pulse Rate 64 59 L 61 Respiratory Rate Blood Pressure Blood Pressure [Right] O2 Sat by Pulse 100 100 99 Oximetry O2 Sat by Pulse Oximetry [ Anterior Bilateral Throughout] 06/01/21 06/01/21 06/01/21 00:08 00:13 00:14 Temperature Pulse Rate 60 60 62 Respiratory Rate Blood Pressure 139/70 Blood Pressure [Right] O2 Sat by Pulse 100 100 Oximetry O2 Sat by Pulse Oximetry [ Anterior Bilateral Throughout] 06/01/21 06/01/21 06/01/21 00:18 00:23 00:25 Temperature Pulse Rate 62 61 78 Respiratory Rate Blood Pressure Blood Pressure [Right] O2 Sat by Pulse 99 100 93 Oximetry O2 Sat by Pulse Oximetry [ Anterior Bilateral Throughout] 06/01/21 06/01/21 06/01/21 00:28 00:33 00:38 Temperature Pulse Rate 71 79 62 Respiratory Rate Blood Pressure Blood Pressure [Right] O2 Sat by Pulse 100 100 100 Oximetry O2 Sat by Pulse Oximetry [ Anterior Bilateral Throughout] 06/01/21 06/01/21 06/01/21 00:43 00:44 00:48 Temperature Pulse Rate 62 58 L 65 Respiratory Rate Blood Pressure 134/75 Blood Pressure [Right] O2 Sat by Pulse 99 100 Oximetry O2 Sat by Pulse Oximetry [ Anterior Bilateral Throughout] 06/01/21 06/01/21 06/01/21 00:53 00:58 01:00 Temperature 98.2 F Pulse Rate 59 L 59 L Respiratory Rate Blood Pressure Blood Pressure [Right] O2 Sat by Pulse 100 99 Oximetry O2 Sat by Pulse Oximetry [ Anterior Bilateral Throughout] 06/01/21 06/01/21 06/01/21 01:03 01:08 01:13 Temperature Pulse Rate 59 L 58 L 60 Respiratory Rate Blood Pressure Blood Pressure [Right] O2 Sat by Pulse 99 99 99 Oximetry O2 Sat by Pulse Oximetry [ Anterior Bilateral Throughout] 06/01/21 06/01/21 06/01/21 01:14 01:18 01:23 Temperature Pulse Rate 60 60 59 L Respiratory Rate Blood Pressure 144/68 Blood Pressure [Right] O2 Sat by Pulse 100 100 Oximetry O2 Sat by Pulse Oximetry [ Anterior Bilateral Throughout] 06/01/21 06/01/21 06/01/21 01:28 01:33 01:38 Temperature Pulse Rate 60 58 L 61 Respiratory Rate Blood Pressure Blood Pressure [Right] O2 Sat by Pulse 99 99 99 Oximetry O2 Sat by Pulse Oximetry [ Anterior Bilateral Throughout] 06/01/21 06/01/21 06/01/21 01:43 01:44 01:48 Temperature Pulse Rate 58 L 61 64 Respiratory Rate Blood Pressure 136/66 Blood Pressure [Right] O2 Sat by Pulse 100 100 Oximetry O2 Sat by Pulse Oximetry [ Anterior Bilateral Throughout] 06/01/21 06/01/21 06/01/21 01:53 01:58 02:04 Temperature Pulse Rate 59 L 69 59 L Respiratory Rate Blood Pressure Blood Pressure [Right] O2 Sat by Pulse 100 100 90 Oximetry O2 Sat by Pulse Oximetry [ Anterior Bilateral Throughout] 06/01/21 06/01/21 06/01/21 02:05 02:10 02:15 Temperature Pulse Rate 80 69 57 L Respiratory Rate Blood Pressure 139/67 Blood Pressure [Right] O2 Sat by Pulse 100 100 100 Oximetry O2 Sat by Pulse Oximetry [ Anterior Bilateral Throughout] 06/01/21 06/01/21 06/01/21 02:20 02:25 02:30 Temperature Pulse Rate 59 L 64 62 Respiratory Rate Blood Pressure Blood Pressure [Right] O2 Sat by Pulse 100 100 100 Oximetry O2 Sat by Pulse Oximetry [ Anterior Bilateral Throughout] 06/01/21 06/01/21 06/01/21 02:35 02:40 02:44 Temperature Pulse Rate 63 59 L 58 L Respiratory Rate Blood Pressure 133/65 Blood Pressure [Right] O2 Sat by Pulse 100 100 Oximetry O2 Sat by Pulse Oximetry [ Anterior Bilateral Throughout] 06/01/21 06/01/21 06/01/21 02:45 02:50 02:55 Temperature Pulse Rate 58 L 58 L 60 Respiratory Rate Blood Pressure Blood Pressure [Right] O2 Sat by Pulse 100 100 100 Oximetry O2 Sat by Pulse Oximetry [ Anterior Bilateral Throughout] 06/01/21 06/01/21 06/01/21 03:00 03:05 03:10 Temperature Pulse Rate 57 L 62 60 Respiratory Rate Blood Pressure Blood Pressure [Right] O2 Sat by Pulse 100 100 100 Oximetry O2 Sat by Pulse Oximetry [ Anterior Bilateral Throughout] 06/01/21 06/01/21 06/01/21 03:14 03:15 03:20 Temperature Pulse Rate 61 59 L 60 Respiratory Rate Blood Pressure 141/76 Blood Pressure [Right] O2 Sat by Pulse 100 100 Oximetry O2 Sat by Pulse Oximetry [ Anterior Bilateral Throughout] 06/01/21 06/01/21 06/01/21 03:25 03:30 03:35 Temperature Pulse Rate 59 L 55 L 57 L Respiratory Rate Blood Pressure Blood Pressure [Right] O2 Sat by Pulse 100 100 100 Oximetry O2 Sat by Pulse Oximetry [ Anterior Bilateral Throughout] 06/01/21 06/01/21 06/01/21 03:40 03:44 03:45 Temperature Pulse Rate 61 60 59 L Respiratory Rate Blood Pressure 140/70 Blood Pressure [Right] O2 Sat by Pulse 100 100 Oximetry O2 Sat by Pulse Oximetry [ Anterior Bilateral Throughout] 06/01/21 06/01/21 06/01/21 03:50 03:55 04:00 Temperature Pulse Rate 59 L 57 L 59 L Respiratory Rate Blood Pressure Blood Pressure [Right] O2 Sat by Pulse 100 99 100 Oximetry O2 Sat by Pulse Oximetry [ Anterior Bilateral Throughout] 06/01/21 06/01/21 06/01/21 04:05 04:10 04:14 Temperature Pulse Rate 60 60 60 Respiratory Rate Blood Pressure 124/67 Blood Pressure [Right] O2 Sat by Pulse 100 100 Oximetry O2 Sat by Pulse Oximetry [ Anterior Bilateral Throughout] 06/01/21 06/01/21 06/01/21 04:15 04:18 04:20 Temperature Pulse Rate 67 61 65 Respiratory Rate Blood Pressure Blood Pressure [Right] O2 Sat by Pulse 99 87 100 Oximetry O2 Sat by Pulse Oximetry [ Anterior Bilateral Throughout] 06/01/21 06/01/21 06/01/21 04:25 04:30 04:35 Temperature Pulse Rate 79 58 L 59 L Respiratory Rate Blood Pressure Blood Pressure [Right] O2 Sat by Pulse 93 100 100 Oximetry O2 Sat by Pulse Oximetry [ Anterior Bilateral Throughout] 06/01/21 06/01/21 06/01/21 04:40 04:44 04:45 Temperature Pulse Rate 57 L 57 L 56 L Respiratory Rate Blood Pressure 138/72 Blood Pressure [Right] O2 Sat by Pulse 100 100 Oximetry O2 Sat by Pulse Oximetry [ Anterior Bilateral Throughout] 06/01/21 06/01/21 06/01/21 04:50 04:55 05:00 Temperature Pulse Rate 56 L 56 L 59 L Respiratory Rate Blood Pressure Blood Pressure [Right] O2 Sat by Pulse 100 100 100 Oximetry O2 Sat by Pulse Oximetry [ Anterior Bilateral Throughout] 06/01/21 06/01/21 06/01/21 05:05 05:10 05:14 Temperature Pulse Rate 58 L 61 61 Respiratory Rate Blood Pressure 144/77 Blood Pressure [Right] O2 Sat by Pulse 100 100 Oximetry O2 Sat by Pulse Oximetry [ Anterior Bilateral Throughout] 06/01/21 06/01/21 06/01/21 05:15 05:20 05:25 Temperature Pulse Rate 61 61 63 Respiratory Rate Blood Pressure Blood Pressure [Right] O2 Sat by Pulse 100 100 100 Oximetry O2 Sat by Pulse Oximetry [ Anterior Bilateral Throughout] 06/01/21 06/01/21 06/01/21 05:30 05:35 05:40 Temperature Pulse Rate 67 63 67 Respiratory Rate Blood Pressure Blood Pressure [Right] O2 Sat by Pulse 100 100 100 Oximetry O2 Sat by Pulse Oximetry [ Anterior Bilateral Throughout] 06/01/21 06/01/21 06/01/21 05:56 06:00 06:06 Temperature 98.5 F Pulse Rate 75 77 73 Respiratory Rate Blood Pressure Blood Pressure [Right] O2 Sat by Pulse 99 100 99 Oximetry O2 Sat by Pulse Oximetry [ Anterior Bilateral Throughout] 06/01/21 06/01/21 06/01/21 06:10 06:14 06:16 Temperature Pulse Rate 60 63 68 Respiratory Rate Blood Pressure 124/70 Blood Pressure [Right] O2 Sat by Pulse 98 99 Oximetry O2 Sat by Pulse Oximetry [ Anterior Bilateral Throughout] 06/01/21 06/01/21 06/01/21 06:21 06:26 06:31 Temperature Pulse Rate 59 L 67 63 Respiratory Rate Blood Pressure Blood Pressure [Right] O2 Sat by Pulse 99 99 99 Oximetry O2 Sat by Pulse Oximetry [ Anterior Bilateral Throughout] 06/01/21 06/01/21 06/01/21 06:36 06:41 06:44 Temperature Pulse Rate 66 60 63 Respiratory Rate Blood Pressure 118/61 Blood Pressure [Right] O2 Sat by Pulse 99 99 Oximetry O2 Sat by Pulse Oximetry [ Anterior Bilateral Throughout] 06/01/21 06/01/21 06/01/21 06:46 06:51 06:56 Temperature Pulse Rate 68 65 68 Respiratory Rate Blood Pressure Blood Pressure [Right] O2 Sat by Pulse 99 99 98 Oximetry O2 Sat by Pulse Oximetry [ Anterior Bilateral Throughout] 06/01/21 06/01/21 06/01/21 07:01 07:06 07:11 Temperature Pulse Rate 69 63 65 Respiratory Rate Blood Pressure Blood Pressure [Right] O2 Sat by Pulse 99 99 100 Oximetry O2 Sat by Pulse Oximetry [ Anterior Bilateral Throughout] 06/01/21 06/01/21 06/01/21 07:12 07:14 07:16 Temperature 99.8 F H Pulse Rate 71 67 69 Respiratory 16 Rate Blood Pressure 115/56 Blood Pressure 115/56 [Right] O2 Sat by Pulse 99 99 Oximetry O2 Sat by Pulse 99 Oximetry [ Anterior Bilateral Throughout] 06/01/21 06/01/21 06/01/21 07:21 07:26 07:30 Temperature Pulse Rate 83 70 82 Respiratory Rate Blood Pressure Blood Pressure [Right] O2 Sat by Pulse 100 100 94 Oximetry O2 Sat by Pulse Oximetry [ Anterior Bilateral Throughout] 06/01/21 06/01/21 06/01/21 07:31 07:36 07:41 Temperature Pulse Rate 69 75 65 Respiratory Rate Blood Pressure Blood Pressure [Right] O2 Sat by Pulse 98 100 99 Oximetry O2 Sat by Pulse Oximetry [ Anterior Bilateral Throughout] 06/01/21 06/01/21 06/01/21 07:44 07:46 07:51 Temperature Pulse Rate 64 62 60 Respiratory Rate Blood Pressure 127/70 Blood Pressure [Right] O2 Sat by Pulse 100 100 Oximetry O2 Sat by Pulse Oximetry [ Anterior Bilateral Throughout] 06/01/21 06/01/21 06/01/21 07:56 08:01 08:06 Temperature Pulse Rate 67 68 57 L Respiratory Rate Blood Pressure Blood Pressure [Right] O2 Sat by Pulse 99 100 100 Oximetry O2 Sat by Pulse Oximetry [ Anterior Bilateral Throughout] 06/01/21 06/01/21 06/01/21 08:11 08:14 08:16 Temperature Pulse Rate 66 59 L 60 Respiratory Rate Blood Pressure 130/62 Blood Pressure [Right] O2 Sat by Pulse 100 100 Oximetry O2 Sat by Pulse Oximetry [ Anterior Bilateral Throughout] 06/01/21 06/01/21 06/01/21 08:21 08:26 08:31 Temperature Pulse Rate 66 82 61 Respiratory Rate Blood Pressure Blood Pressure [Right] O2 Sat by Pulse 99 100 100 Oximetry O2 Sat by Pulse Oximetry [ Anterior Bilateral Throughout] 06/01/21 06/01/21 06/01/21 08:36 08:41 08:44 Temperature Pulse Rate 73 68 71 Respiratory Rate Blood Pressure 152/79 Blood Pressure [Right] O2 Sat by Pulse 100 100 Oximetry O2 Sat by Pulse Oximetry [ Anterior Bilateral Throughout] 06/01/21 06/01/21 08:46 08:51 Temperature Pulse Rate 65 61 Respiratory Rate Blood Pressure Blood Pressure [Right] O2 Sat by Pulse 100 100 Oximetry O2 Sat by Pulse Oximetry [ Anterior Bilateral Throughout] - Exam Breasts: deferred Cardiovascular: Regular rate Lungs: Normal air movement Abdomen: Present: other (gravid) Uterus: Present: other (S<D) FHR: category 1 Uterine Contraction Monitor Mode: External Cervical Dilatation: 1 (vertex) Cervical Effacement Percentage: 50 station: -2 Uterine Contraction Pattern: Irregular Uterine Tone Measurement Phase: Resting Uterine Contraction Intensity: Mild Extremities: edema - Labs Labs: Abnormal Labs 05/30/21 16:09 MCH 27 L RDW 15.4 H Laboratory Results - last 24 hr 05/31/21 09:20 SARS-CoV-2 (PCR) Negative
[2021-06-01] MEDS: LACTATED RINGERS 1,000 ML IV SCH ×2 (15:08→23:07)
[2021-06-01] MEDS: fentaNYL 100 MCG/2 ML INJ IV PRN ×2 (15:17→18:03)
--- NOTE | 2021-06-02 05:05 | Progress Note ---
Assessment and Plan A: IUP at 37w3d IUGR Hyperthyroidism,maternal tachycardia Hidradenitis suppurativa Severe eczema GBS positive P: Continue routine intrapartum care Increase pitocin as tolerated Closely monitor status Subjective - Subjective Date of service: 06/02/21 Principal diagnosis: IOL; IUGR, morbid obesity, Interval history: Pt uncomfortable with contractions. s/p multiple ripening agents and Cook catheter. Patient reports: movement normal, contractions, no new complaints, no loss of fluid, no vaginal bleeding Objective - Vital Signs Vital Signs: Vital Signs - 12hr 06/01/21 06/01/21 06/01/21 17:10 17:15 17:19 Temperature Pulse Rate 61 57 L 76 Respiratory Rate Blood Pressure O2 Sat by Pulse 100 100 100 Oximetry O2 Sat by Pulse Oximetry [ Anterior Bilateral Throughout] 06/01/21 06/01/21 06/01/21 17:25 17:30 17:34 Temperature Pulse Rate 84 75 62 Respiratory Rate Blood Pressure O2 Sat by Pulse 100 100 100 Oximetry O2 Sat by Pulse Oximetry [ Anterior Bilateral Throughout] 06/01/21 06/01/21 06/01/21 17:39 17:44 17:50 Temperature Pulse Rate 69 63 61 Respiratory Rate Blood Pressure O2 Sat by Pulse 100 100 100 Oximetry O2 Sat by Pulse Oximetry [ Anterior Bilateral Throughout] 06/01/21 06/01/21 06/01/21 17:55 18:00 18:03 Temperature Pulse Rate 64 62 Respiratory 16 Rate Blood Pressure O2 Sat by Pulse 99 100 Oximetry O2 Sat by Pulse Oximetry [ Anterior Bilateral Throughout] 06/01/21 06/01/21 06/01/21 18:05 18:09 18:15 Temperature Pulse Rate 70 70 60 Respiratory Rate Blood Pressure O2 Sat by Pulse 100 99 98 Oximetry O2 Sat by Pulse Oximetry [ Anterior Bilateral Throughout] 06/01/21 06/01/21 06/01/21 18:20 18:25 18:30 Temperature Pulse Rate 59 L 58 L 59 L Respiratory Rate Blood Pressure O2 Sat by Pulse 98 99 99 Oximetry O2 Sat by Pulse Oximetry [ Anterior Bilateral Throughout] 06/01/21 06/01/21 06/01/21 18:35 18:40 18:45 Temperature Pulse Rate 60 58 L 57 L Respiratory Rate Blood Pressure O2 Sat by Pulse 100 98 99 Oximetry O2 Sat by Pulse Oximetry [ Anterior Bilateral Throughout] 06/01/21 06/01/21 06/01/21 18:50 18:55 19:00 Temperature Pulse Rate 64 60 59 L Respiratory Rate Blood Pressure O2 Sat by Pulse 100 99 99 Oximetry O2 Sat by Pulse Oximetry [ Anterior Bilateral Throughout] 06/01/21 06/01/21 06/01/21 19:05 19:10 19:13 Temperature 98.5 F Pulse Rate 65 59 L 65 Respiratory 18 Rate Blood Pressure O2 Sat by Pulse 99 100 100 Oximetry O2 Sat by Pulse 99 Oximetry [ Anterior Bilateral Throughout] 06/01/21 06/01/21 06/01/21 19:15 19:20 19:21 Temperature Pulse Rate 59 L 57 L 59 L Respiratory Rate Blood Pressure 150/68 O2 Sat by Pulse 98 100 Oximetry O2 Sat by Pulse Oximetry [ Anterior Bilateral Throughout] 06/01/21 06/01/21 06/01/21 19:25 19:30 19:32 Temperature Pulse Rate 61 59 L 65 Respiratory Rate Blood Pressure O2 Sat by Pulse 100 100 89 Oximetry O2 Sat by Pulse Oximetry [ Anterior Bilateral Throughout] 06/01/21 06/01/21 06/01/21 19:35 19:40 19:45 Temperature Pulse Rate 59 L 57 L 63 Respiratory Rate Blood Pressure O2 Sat by Pulse 99 99 99 Oximetry O2 Sat by Pulse Oximetry [ Anterior Bilateral Throughout] 06/01/21 06/01/21 06/01/21 19:50 19:55 20:00 Temperature Pulse Rate 58 L 60 60 Respiratory Rate Blood Pressure O2 Sat by Pulse 100 99 100 Oximetry O2 Sat by Pulse Oximetry [ Anterior Bilateral Throughout] 06/01/21 06/01/21 06/01/21 20:05 20:10 20:15 Temperature Pulse Rate 59 L 59 L 62 Respiratory Rate Blood Pressure O2 Sat by Pulse 99 99 100 Oximetry O2 Sat by Pulse Oximetry [ Anterior Bilateral Throughout] 06/01/21 06/01/21 06/01/21 20:17 20:20 20:25 Temperature Pulse Rate 66 60 69 Respiratory Rate Blood Pressure 139/69 O2 Sat by Pulse 100 100 Oximetry O2 Sat by Pulse Oximetry [ Anterior Bilateral Throughout] 06/01/21 06/01/21 06/01/21 20:30 20:35 20:40 Temperature Pulse Rate 61 64 77 Respiratory Rate Blood Pressure O2 Sat by Pulse 100 100 98 Oximetry O2 Sat by Pulse Oximetry [ Anterior Bilateral Throughout] 06/01/21 06/01/21 06/01/21 20:45 20:47 20:57 Temperature Pulse Rate 64 62 70 Respiratory Rate Blood Pressure O2 Sat by Pulse 99 69 L 100 Oximetry O2 Sat by Pulse Oximetry [ Anterior Bilateral Throughout] 06/01/21 06/01/21 06/01/21 21:02 21:07 21:12 Temperature Pulse Rate 78 62 62 Respiratory Rate Blood Pressure O2 Sat by Pulse 99 100 99 Oximetry O2 Sat by Pulse Oximetry [ Anterior Bilateral Throughout] 06/01/21 06/01/21 06/01/21 21:17 21:19 21:22 Temperature Pulse Rate 58 L 63 66 Respiratory Rate Blood Pressure 127/58 O2 Sat by Pulse 99 100 Oximetry O2 Sat by Pulse Oximetry [ Anterior Bilateral Throughout] 06/01/21 06/01/21 06/01/21 21:27 21:32 21:37 Temperature Pulse Rate 63 57 L 59 L Respiratory Rate Blood Pressure O2 Sat by Pulse 100 99 98 Oximetry O2 Sat by Pulse Oximetry [ Anterior Bilateral Throughout] 06/01/21 06/01/21 06/01/21 21:41 21:47 21:52 Temperature Pulse Rate 59 L 58 L 58 L Respiratory Rate Blood Pressure O2 Sat by Pulse 100 98 98 Oximetry O2 Sat by Pulse Oximetry [ Anterior Bilateral Throughout] 06/01/21 06/01/21 06/01/21 21:57 22:02 22:07 Temperature Pulse Rate 58 L 60 57 L Respiratory Rate Blood Pressure O2 Sat by Pulse 100 99 98 Oximetry O2 Sat by Pulse Oximetry [ Anterior Bilateral Throughout] 06/01/21 06/01/21 06/01/21 22:12 22:17 22:22 Temperature Pulse Rate 56 L 56 L 63 Respiratory Rate Blood Pressure 140/65 O2 Sat by Pulse 97 99 97 Oximetry O2 Sat by Pulse Oximetry [ Anterior Bilateral Throughout] 06/01/21 06/01/21 06/01/21 22:27 22:32 22:37 Temperature Pulse Rate 57 L 55 L 57 L Respiratory Rate Blood Pressure O2 Sat by Pulse 98 98 98 Oximetry O2 Sat by Pulse Oximetry [ Anterior Bilateral Throughout] 06/01/21 06/01/21 06/01/21 22:42 22:47 22:52 Temperature Pulse Rate 73 57 L 66 Respiratory Rate Blood Pressure O2 Sat by Pulse 98 98 100 Oximetry O2 Sat by Pulse Oximetry [ Anterior Bilateral Throughout] 06/01/21 06/01/21 06/01/21 22:59 23:00 23:05 Temperature Pulse Rate 67 73 60 Respiratory Rate Blood Pressure O2 Sat by Pulse 92 99 100 Oximetry O2 Sat by Pulse Oximetry [ Anterior Bilateral Throughout] 06/01/21 06/01/21 06/01/21 23:08 23:10 23:15 Temperature 98.2 F Pulse Rate 55 L 60 57 L Respiratory 17 Rate Blood Pressure O2 Sat by Pulse 100 100 100 Oximetry O2 Sat by Pulse Oximetry [ Anterior Bilateral Throughout] 06/01/21 06/01/21 06/01/21 23:17 23:20 23:25 Temperature Pulse Rate 56 L 54 L 58 L Respiratory Rate Blood Pressure 145/68 O2 Sat by Pulse 100 100 Oximetry O2 Sat by Pulse Oximetry [ Anterior Bilateral Throughout] 06/01/21 06/01/21 06/01/21 23:30 23:35 23:40 Temperature Pulse Rate 58 L 57 L 56 L Respiratory Rate Blood Pressure O2 Sat by Pulse 99 99 100 Oximetry O2 Sat by Pulse Oximetry [ Anterior Bilateral Throughout] 06/01/21 06/01/21 06/01/21 23:45 23:50 23:55 Temperature Pulse Rate 58 L 60 58 L Respiratory Rate Blood Pressure O2 Sat by Pulse 99 99 100 Oximetry O2 Sat by Pulse Oximetry [ Anterior Bilateral Throughout] 06/02/21 06/02/21 06/02/21 00:00 00:05 00:10 Temperature Pulse Rate 67 56 L 57 L Respiratory Rate Blood Pressure O2 Sat by Pulse 99 100 100 Oximetry O2 Sat by Pulse Oximetry [ Anterior Bilateral Throughout] 06/02/21 06/02/21 06/02/21 00:15 00:19 00:20 Temperature Pulse Rate 55 L 59 L 61 Respiratory Rate Blood Pressure 140/64 O2 Sat by Pulse 100 100 Oximetry O2 Sat by Pulse Oximetry [ Anterior Bilateral Throughout] 06/02/21 06/02/21 06/02/21 00:25 00:30 00:35 Temperature Pulse Rate 73 56 L 54 L Respiratory Rate Blood Pressure O2 Sat by Pulse 100 98 98 Oximetry O2 Sat by Pulse Oximetry [ Anterior Bilateral Throughout] 06/02/21 06/02/21 06/02/21 00:40 00:45 00:46 Temperature Pulse Rate 58 L 61 73 Respiratory Rate Blood Pressure O2 Sat by Pulse 99 99 94 Oximetry O2 Sat by Pulse Oximetry [ Anterior Bilateral Throughout] 06/02/21 06/02/21 06/02/21 00:50 00:53 00:55 Temperature Pulse Rate 63 73 81 Respiratory Rate Blood Pressure O2 Sat by Pulse 96 91 100 Oximetry O2 Sat by Pulse Oximetry [ Anterior Bilateral Throughout] 06/02/21 06/02/21 06/02/21 01:00 01:09 01:10 Temperature Pulse Rate 60 90 85 Respiratory Rate Blood Pressure O2 Sat by Pulse 100 90 100 Oximetry O2 Sat by Pulse Oximetry [ Anterior Bilateral Throughout] 06/02/21 06/02/21 06/02/21 01:15 01:17 01:20 Temperature Pulse Rate 58 L 57 L 57 L Respiratory Rate Blood Pressure 123/62 O2 Sat by Pulse 100 100 Oximetry O2 Sat by Pulse Oximetry [ Anterior Bilateral Throughout] 06/02/21 06/02/21 06/02/21 01:25 01:30 01:35 Temperature Pulse Rate 57 L 66 56 L Respiratory Rate Blood Pressure O2 Sat by Pulse 100 100 100 Oximetry O2 Sat by Pulse Oximetry [ Anterior Bilateral Throughout] 06/02/21 06/02/21 06/02/21 01:40 01:45 01:50 Temperature Pulse Rate 56 L 72 56 L Respiratory Rate Blood Pressure O2 Sat by Pulse 100 100 100 Oximetry O2 Sat by Pulse Oximetry [ Anterior Bilateral Throughout] 06/02/21 06/02/21 06/02/21 01:55 02:00 02:05 Temperature Pulse Rate 56 L 55 L 58 L Respiratory Rate Blood Pressure O2 Sat by Pulse 100 100 100 Oximetry O2 Sat by Pulse Oximetry [ Anterior Bilateral Throughout] 06/02/21 06/02/21 06/02/21 02:10 02:15 02:17 Temperature Pulse Rate 62 58 L 57 L Respiratory Rate Blood Pressure 133/63 O2 Sat by Pulse 100 100 Oximetry O2 Sat by Pulse Oximetry [ Anterior Bilateral Throughout] 06/02/21 06/02/21 06/02/21 02:20 02:25 02:30 Temperature Pulse Rate 58 L 56 L 54 L Respiratory Rate Blood Pressure O2 Sat by Pulse 100 100 100 Oximetry O2 Sat by Pulse Oximetry [ Anterior Bilateral Throughout] 06/02/21 06/02/21 06/02/21 02:35 02:37 02:40 Temperature Pulse Rate 64 61 62 Respiratory Rate Blood Pressure O2 Sat by Pulse 100 92 96 Oximetry O2 Sat by Pulse Oximetry [ Anterior Bilateral Throughout] 06/02/21 06/02/21 06/02/21 02:45 02:50 02:55 Temperature Pulse Rate 60 62 55 L Respiratory Rate Blood Pressure O2 Sat by Pulse 100 100 100 Oximetry O2 Sat by Pulse Oximetry [ Anterior Bilateral Throughout] 06/02/21 06/02/21 06/02/21 03:00 03:05 03:10 Temperature Pulse Rate 56 L 56 L 57 L Respiratory Rate Blood Pressure O2 Sat by Pulse 100 100 100 Oximetry O2 Sat by Pulse Oximetry [ Anterior Bilateral Throughout] 06/02/21 06/02/21 06/02/21 03:15 03:17 03:20 Temperature Pulse Rate 55 L 68 58 L Respiratory Rate Blood Pressure 127/68 O2 Sat by Pulse 100 100 Oximetry O2 Sat by Pulse Oximetry [ Anterior Bilateral Throughout] 06/02/21 06/02/21 06/02/21 03:25 03:30 03:35 Temperature Pulse Rate 57 L 66 56 L Respiratory Rate Blood Pressure O2 Sat by Pulse 100 100 100 Oximetry O2 Sat by Pulse Oximetry [ Anterior Bilateral Throughout] 06/02/21 06/02/21 06/02/21 03:40 03:45 03:50 Temperature Pulse Rate 59 L 57 L 59 L Respiratory Rate Blood Pressure O2 Sat by Pulse 100 100 100 Oximetry O2 Sat by Pulse Oximetry [ Anterior Bilateral Throughout] 06/02/21 06/02/21 06/02/21 03:55 04:00 04:05 Temperature Pulse Rate 56 L 56 L 61 Respiratory Rate Blood Pressure O2 Sat by Pulse 100 100 100 Oximetry O2 Sat by Pulse Oximetry [ Anterior Bilateral Throughout] 06/02/21 06/02/21 06/02/21 04:10 04:15 04:19 Temperature Pulse Rate 56 L 56 L 57 L Respiratory Rate Blood Pressure 136/70 O2 Sat by Pulse 100 100 Oximetry O2 Sat by Pulse Oximetry [ Anterior Bilateral Throughout] 06/02/21 06/02/21 06/02/21 04:20 04:25 04:30 Temperature Pulse Rate 56 L 69 61 Respiratory Rate Blood Pressure O2 Sat by Pulse 100 99 100 Oximetry O2 Sat by Pulse Oximetry [ Anterior Bilateral Throughout] 06/02/21 06/02/21 06/02/21 04:35 04:40 04:45 Temperature Pulse Rate 54 L 59 L 55 L Respiratory Rate Blood Pressure O2 Sat by Pulse 93 100 100 Oximetry O2 Sat by Pulse Oximetry [ Anterior Bilateral Throughout] 06/02/21 06/02/21 06/02/21 04:50 04:55 05:00 Temperature Pulse Rate 57 L 56 L 74 Respiratory Rate Blood Pressure O2 Sat by Pulse 100 100 100 Oximetry O2 Sat by Pulse Oximetry [ Anterior Bilateral Throughout] - Exam Breasts: deferred Abdomen: Present: soft (obese, gravid ) Uterus: Present: normal (gravid ) FHR: auscultation normal Uterine Contraction Monitor Mode: External Cervical Dilatation: 4 Cervical Effacement Percentage: 60 station: -3 Uterine Contraction Pattern: Irregular Uterine Tone Measurement Phase: Resting Uterine Contraction Intensity: Mild - Labs Labs: Abnormal Labs 05/30/21 16:09 MCH 27 L RDW 15.4 H
[2021-06-02] MEDS: LACTATED RINGERS 1,000 ML IV SCH ×4 (05:21→18:32)
[2021-06-02] MEDS ORDERED: ePHEDrine SULFATE 50 MG/1 ML INJ IV PRN (06:11)
[2021-06-02] MEDS ORDERED: NALOXONE 2 MG/2 ML INJ IV PRN (06:11)
--- NOTE | 2021-06-02 06:13 | Anesthesia Consultation ---
Anesthesia Consult and Med Hx Date of service: 06/02/21 - Airway Anesthetic Teeth Evaluation: Good ROM Head & Neck: Adequate Mental/Hyoid Distance: Adequate Mallampati Class: Class II Intubation Access Assessment: Probably Good - Pulmonary Exam CTA: Yes - Cardiac Exam Cardiac Exam: RRR - Pre-Operative Health Status ASA Pre-Surgery Classification: ASA3 Proposed Anesthetic Plan: Epidural - Pulmonary Hx Smoking: Yes Hx Asthma: No COPD: No Hx Pneumonia: No - Cardiovascular System Hx Hypertension: No Hx Cardia Arrhythmia: Yes - Central Nervous System Hx Seizures: No Hx Psychiatric Problems: No - Endocrine Hx Renal Disease: No Hx End Stage Renal Disease: No Hx Hypothyroidism: No Hx Hyperthyroidism: Yes - Hematic Hx Anemia: No Hx Sickle Cell Disease: No - Other Systems Hx Alcohol Use: No Hx Substance Use: Yes Hx Cancer: No Hx Obesity: Yes
--- NOTE | 2021-06-02 06:55 | Progress Note ---
Labor Epidural - Labor Epidural Start Time: 06:19 Stop Time: 06:43 Performed by:: TANNER KEITH Procedure: Patient is requesting epidural for labor pain. H&P, and labs reviewed. Procedure explained, questions answered, consent obtained. Patient in sitting position with blood pressure cuff and pulse ox on and working. Timeout performed immediately before start of procedure. Sterile Chloraprep prep/drape. 3 mL 1% lidocaine skin wheal. 17-gauge tuohy epidural needle advanced to [id number] with air at 9 cm with multiple attempts. 25-gauge spinal needle advanced until clear, free-flowing CSF. Intrathecal dexmedetomidine [5] mcg administered and needle removed. Epidural catheter advanced to 15 cm, negative aspiration for blood and csf, unable to inject through catheter, withdrew to 12 cm still unable to flush, catheter removed. 17G tuohy advanced to PRATIBHA at 9cm. Positive free flowing csf return, catheter threaded to 14cm. Sterile sponge and tegaderm applied, followed by tape reinforcement. Patient tolerated procedure well.
[2021-06-02] MEDS ORDERED: fentaNYL-BUPIV 2 MCG/ML-0.125% 200 MCG/100 ML BAG EPIDURAL SCH (07:00)
[2021-06-02] MEDS: AMPICILLIN/NS 1 GM/50 ML 1 GM/50 ML BAG IV SCH ×3 (08:14→16:24)
--- NOTE | 2021-06-02 10:19 | Event Note ---
Date: 06/02/21 Day 4 of induction for IUGR. VE: 4-/-2 wth bulging bag. AROM for clear fluid. Continue induction process.
--- NOTE | 2021-06-02 13:39 | Event Note ---
Date: 06/02/21 Pt comfortable with epidural. Category II tracing. SVE: /-3. IUPC placed without difficulty. Pitocin stopped previously due to concern for receptor saturation. Restart pitocin. Continue to monitor maternal and status.
[2021-06-02] MEDS ORDERED: METOCLOPRAMIDE 10 MG/2 ML INJ IV ONE (17:09)
[2021-06-02] MEDS ORDERED: BICITRA ORAL LIQD 30ML PO ONE (17:09)
[2021-06-02] MEDS ORDERED: FAMOTIDINE 20 MG/2 ML INJ IV ONE (17:09)
[2021-06-02] MEDS ORDERED: OXYTOCIN DRIP 30 UNITS/500 ML BAG IV SCH ×2 (18:00→22:45)
[2021-06-02] MEDS ORDERED: dexAMETHasone 20 MG/5 ML VIAL ONE (18:54)
[2021-06-02] MEDS ORDERED: BUPIVACAINE /DEX-WATER 0.75% (2 ML) AMPULE INFILTRATI ONE (18:54)
[2021-06-02] MEDS ORDERED: BUPIVACAINE/PF (0.25%) 2.5 MG/ML 30 ML VIAL INFILTRATI ONE (18:54)
--- NOTE | 2021-06-02 18:57 | Event Note ---
Date: 06/02/21 Received call from nurse regarding heart tones and late decelerations. 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 Pitocin is now off again. Nurse advised to prepare patient for . Was advised that nurse would call with time patient would be ready. Nurse called and said 6:30.
[2021-06-02] MEDS ORDERED: ceFAZolin/Water 2 GM/20 ML 2 GM/20 ML SYRINGE IV ONE ×2 (19:17→19:18)
[2021-06-02] MEDS ORDERED: SODIUM CHLORIDE 0.9% IRR 1,500 ML BOTTLE IR ONE (19:25)
[2021-06-02] MEDS ORDERED: ceFAZolin/STERILE WATER 2 GM/20 ML SYRINGE IV ONE (19:25)
[2021-06-02] MEDS ORDERED: WATER FOR IRRIG STERILE 1,500 ML BOTTLE IR ONE (19:34)
[2021-06-02] MEDS ORDERED: KETOROLAC 30 MG/1 ML INJ ONE (20:03)
--- NOTE | 2021-06-02 20:24 | Procedure Note ---
OB Delivery Note - Delivery Date of Delivery: 06/02/21 Surgeon: DENISE LI - Section Preop diagnosis: arrest of descent, nonreassuring FHR tracing Postop diagnosis: same (with left dermoid cyst) section procedure: primary low transverse (with left oopherectomy) Disposition: PACU Complications: other (Presence of enlarged irregular left ovary consistent with dermoid cyst) Narrative: See op report - Infant A at 1 minute: 8 at 5 minutes: 9 Gender: Male (4 pounds 13 ounces, 2180g)
--- NOTE | 2021-06-02 20:32 | Operative Report ---
Operative Report Operative Report: Preoperative diagnosis: Intrauterine at 37 and 2/7 weeks 2. IUGR 3. Failed induction 4. Nonreassuring heart tones 5. Arrest of descent Postoperative diagnosis: Same with persistent OP position and left ovarian mass consistent with dermoid cyst Procedure: Primary low transverse section, left oophorectomy Surgeon: Dr. Shawna Torres EBL: 650 cc Urine output: 50 mL IV fluids: 1400 mL Findings: Viable male in the persistent OP position. Weight 4 lbs. 13 oz. 2180 g Apgars 8 and 9. Markedly enlarged and irregular left ovary Specimens: Placenta and left ovary Complications: Adjustment to procedure to include left oophorectomy Procedure: The patient was admitted to the OR with IV running and in place. She was properly identified as herself. She had been given an epidural in the room during her labor. Once in the operating room, additional meds were given to confirm adequate anesthesia. After timeout, an Allis test was performed to ensure adequate anesthesia. Once confirmed, the incision was made with the scalpel and carried to the underlying fascia using the scalpel and the Bovie. The fascia was incised in the midline and incision was extended bilaterally using the curved Garnett scissors. The fascia was then dissected from the underlying rectus muscles in a series of sharp and blunt dissection using the Garnett scissors. Muscles were in the in the midline sharply using Metzenbaum scissors and the peritoneum was entered into bluntly using the surgeon's fingers. A bladder blade was then placed into the incision to protect the bladder. Following this the bladder flap was created. Hysterotomy incision was then made in the scalpel. Upon uterine entry, the amniotic sac was ruptured for clear fluid. The infant was then delivered without difficulty.. His mouth and nose were suctioned on the field. The cord was clamped and cut and he was handed to the waiting NICU personnel. The uterus was then exteriorized and cleared of all clots and debris. The hysterotomy incision was then closed in a running locked fashion using 0 Vicryl in 2 layers. The abdomen was then copiously irrigated with warm normal saline. During this process, it was noted that the left ovary had several cysts encompassing it of different sizes. When one of the cysts was drained a fatty liquid substance was exuded. In addition there appeared to be some hair within the cyst, making this consistent with a dermoid cyst. At this point the patient was asked if she was aware of this abnormality to which she stated yes. She was then asked whether or not she consented to have the ovary removed and she agreed. This was witnessed by the [employer] and the nurse. At this time, Evelia clamps were placed across the base of the ovary it was then amputated and handed off for pathology. The stump was then sutured and tied with sutures of 0 Vicryl. There was excellent hemostasis. At this point the abdomen was irrigated a second time. Following this the uterus was replaced into the abdominal cavity. At this point the muscles were reapproximated in the midline using individual sutures of 0 Vicryl. Following this the fascia was closed in a running fashion using 0 Vicryl. Tissue was then copiously irrigated. Retention sutures were placed in the subcutaneous fat tissue Skin was closed in a running fashion using 3-0 Monocryl. The sponge lap needle and instrument counts were correct 2. The patient tolerated the procedure well. She was taken to recovery in stable condition.
[2021-06-02] MEDS ORDERED: ACETAMINOPHEN 325 MG TAB PO PRN (22:45)
[2021-06-02] MEDS ORDERED: D5W/LACTATED RINGERS 1,000 ML IV SCH (22:45)
[2021-06-02] MEDS ORDERED: ONDANSETRON 4 MG/2 ML INJ IV PRN (22:45)
[2021-06-02] MEDS ORDERED: LANOLIN/ZINC/DIMETHICONE (LANSINOH) 7 GM TP PRN (22:45)
[2021-06-02] MEDS ORDERED: WITCH HAZEL/ GLYCERIN PAD TP PRN (22:45)
[2021-06-02] MEDS ORDERED: NALOXONE 0.4 MG/1 ML INJ IV PRN (22:45)
[2021-06-03] MEDS: MORPHINE 4 MG/1 ML INJ IV PRN ×2 (00:43→04:57)
[2021-06-03] MEDS: SIMETHICONE 80 MG CHEW TAB PO PRN ×2 (02:44→21:56)
[2021-06-03 07:48] LABS: Hematocrit 24.7 % (30.3-42.9)
[2021-06-03] MEDS: PRENATAL VIT27-FE FUMARATE-FOLIC ACID VIT TAB PO SCH (10:58)
[2021-06-03] MEDS: IBUPROFEN 800 MG TAB PO PRN ×2 (10:58→17:03)
[2021-06-03] MEDS: oxyCODONE /ACETAMINOPHEN 5-325MG TAB PO PRN ×2 (10:59→21:56)
--- NOTE | 2021-06-03 11:41 | Post Anesthesia Evaluation ---
- Post Anesthesia Evaluation Patient Participated: Yes Airway Patent: Yes Stable Respiratory Function: Yes Nausea/Vomiting: No Temp > 96.8F: Yes Pain Manageable: Yes Adequeate Hydration: Yes Anesthesia Complications: No Block Receding Appropriately: Yes
[2021-06-04] MEDS: oxyCODONE /ACETAMINOPHEN 5-325MG TAB PO PRN ×2 (04:30→13:00)
[2021-06-04] MEDS: PRENATAL VIT27-FE FUMARATE-FOLIC ACID VIT TAB PO SCH (10:27)
--- NOTE | 2021-06-04 15:15 | Progress Note ---
Assessment and Plan PPD 1 s/p primary ltcs for failure to progress and failed induction, doing well. Plan for discharge on tomorrow. Subjective - Subjective Date of service: 06/03/21 Principal diagnosis: IOL; IUGR, morbid obesity, Patient reports: appetite normal, voiding normally, pain well controlled, ambulating normally : doing well Objective - Vital Signs Latest vital signs: Vital Signs Temp Pulse Resp BP Pulse Ox Pulse Ox 06/04/21 11:32 107 H 115/71 97 06/04/21 08:00 99 06/04/21 07:54 97.3 F L 92 H 20 118/51 99 06/04/21 04:30 18 06/03/21 23:28 98.2 F 95 H 20 108/51 98 06/03/21 22:00 98 06/03/21 21:56 18 06/03/21 17:20 98.1 F 104 H 18 114/64 100 Intake and Output 06/04/21 06/04/21 06/04/21 06:59 14:59 22:59 Intake Total 240 Balance 240 Intake: Oral 240 Other: Total, Intake Amount 240 # Voids Void 1 - Exam Breasts: Present: deferred Cardiovascular: Present: Regular rate, Normal S1, Normal S2 Lungs: Present: Clear to auscultation, Normal air movement Abdomen: Present: normal appearance, soft, normal bowel sounds Vulva: both: normal Uterus: Present: normal, firm Extremities: Present: normal Incision: Present: normal, dry, intact
--- NOTE | 2021-06-04 15:17 | Discharge Summary ---
Providers - Providers Date of Admission: 05/30/21 14:58 Date of discharge: 06/04/21 Attending physician: YOANNA JOHNSON Primary care physician: YOANNA JOHNSON Hospitalization Reason for admission: section Delivery: Procedure: repeat low transverse Episiotomy: none Incision: normal, dry, intact Other procedures: none complications: none Discharge diagnosis: IUP at term delivered baby: male Hospital course: unremarkable Condition at discharge: Good Disposition: 01 HOME / SELF CARE / HOMELESS Plan - Provider Discharge Summary Activity: routine, no sex for 6 weeks, no heavy lifting 4 weeks, no strenuous exercise Diet: routine Instructions: routine Additional instructions: [] Smoking cessation referral if applicable(refer to patient education folder for contact #) [] Refer to [facility]'s [facility] Booklet Call your doctor immediately for: * Fever > 100.5 * Heavy vaginal bleeding ( >1 pad per hour) * Severe persistent headache * Shortness of breath * Reddened, hot, painful area to leg or breast * Drainage or odor from incision. * Keep incision clean and dry at all times and follow doctor's instructions regarding bathing/showering - Follow up plan Follow up: YOANNA JOHNSON MD [Primary Care Provider] - 14 Days
[2021-06-04 16:24] VITALS: BP 130/73
== END 2021-06-04 18:00 | disposition home or self-care (01) | DRG 765 ==
LOC: TRG 14:57 → LD 14:58 → TRG 16:09 → APU 06-02 18:57 → OB 06-02 22:44
PROVIDERS: ADMIT Obstetrics & Gynecology; ATTEND Obstetrics & Gynecology
PROC: 10D00Z1 Extraction of Products of Conception, Low, Open Approach (ICD-10-PCS; principal; 2021-06-02)
PROC: 0UB10ZZ Excision of Left Ovary, Open Approach (ICD-10-PCS; 2021-06-02)
DX: O36.5930 Maternal care for other known or suspected poor fetal growth, third trimester, not applicable or unspecified (principal); O98.32 Other infections with a predominantly sexual mode of transmission complicating childbirth; A60.00 Herpesviral infection of urogenital system, unspecified; E05.90 Thyrotoxicosis, unspecified without thyrotoxic crisis or storm; Z20.822 Contact with and (suspected) exposure to COVID-19; O61.9 Failed induction of labor, unspecified; O99.284 Endocrine, nutritional and metabolic diseases complicating childbirth; O76 Abnormality in fetal heart rate and rhythm complicating labor and delivery; O99.824 Streptococcus B carrier state complicating childbirth; O99.892 Other specified diseases and conditions complicating childbirth; R00.0 Tachycardia, unspecified; D27.1 Benign neoplasm of left ovary; Z3A.37 37 weeks gestation of pregnancy; Z37.0 Single live birth
CPT/HCPCS: 36415; 59200; 85014; 85018; 85027; 86592; 86850; 86900; 86901; 88305; 88307; G0378; J0630; J3490; J7060; J0290; J0690; J1100; J1885; J2270; J2590; J2765; J3010; J7120; J7121; U0003